=== PATIENT | male | born 1960 | race Caucasian/White ===

== ENCOUNTER 2016-04-07 | Emergency (ER) | payer BC ==
[2016-04-07] MEDS ORDERED: Clindamycin Cap(NF) 300 MG CAP PO ONE ×2 (00:14→00:15)
[2016-04-07] MEDS ORDERED: diPHENhydraMINE PO* 25 MG PO ONE (00:16)
[2016-04-07] MEDS ORDERED: Clindamycin CAP* 150 MG ONE (00:46)
[2016-04-07] MEDS ORDERED: Clindamycin CAP* 150 MG PO ONE (01:00)
[2016-04-07 01:22] VITALS: BP 132/80
--- NOTE | 2016-04-18 22:15 | ED ---
Tammi Padilla SooYoung, scribed for Raul Alford MD on 04/07/16 at 0019 . Throat Pain/Nasal Congestion - HPI Summary HPI Summary: A 55 y/o M presents to ED with swelling to R-side of tongue and neck. Pt states onset was approx 1-2 days ago, when he first noticed lower R tooth pain. Gradually, he noticed his tongue "felt weird" and became swollen. Associated sx : mild R ear pressure. Denies dyspnea. Aggravating factors: swallowing. Pt took his Lisinopril this AM. Pt has NKA. - History of Current Complaint Time Seen by Provider: 04/07/16 00:02 Hx Obtained From: Patient Onset/Duration: Lasting Days, Still Present Severity: Moderate - Allergies/Home Medications Allergies/Adverse Reactions: Allergies Allergy/AdvReac Type Severity Reaction Status Date / Time No Known Allergies Allergy Verified 12/21/15 17:43 PMH/Surg Hx/FS Hx/Imm Hx Previously Healthy: Yes Cardiovascular History: Reports: Hx Hypertension Infectious Disease History: No Infectious Disease History: Denies: Traveled Outside the [place] in Last 30 Days - Family History Known Family History: Positive: Hypertension - Social History Occupation: Employed Full-time - SELF-EMPLOYED Lives: With Family Alcohol Use: Rare Substance Use Type: Reports: None Smoking Status (MU): Never Smoked Tobacco Review of Systems Negative: Fever Positive: Dental Pain, Ear Ache - mild R ear, Other - swelling of tongue and neck, R-side Cardiovascular: Negative Respiratory: Negative All Other Systems Reviewed And Are Negative: Yes Physical Exam Triage Information Reviewed: Yes Vital Signs On Initial Exam: Initial Vitals Temp Pulse Resp BP Pulse Ox 98.3 F 89 10 175/83 94 04/07/16 00:07 04/07/16 00:07 04/07/16 00:07 04/07/16 00:07 04/07/16 00:07 Vital Signs Reviewed: Yes Appearance: Positive: Well-Appearing, No Pain Distress Skin: Positive: Warm, Skin Color Reflects Adequate Perfusion, Dry Head/Face: Positive: Normal Head/Face Inspection Eyes: Positive: EOMI, LIDYA ENT: Positive: Other - R EYE-TOOTH WITH FILLING IS TENDER TO PALPATION. GINGIVAL SWELLING AT SITE. UNDERNEATH TONGUE HAS SWELLING. R SUBMANDIBULAR IS TENDER BUT NOT SWOLLEN. POSTERIOR PHARYNX IS OPEN, NOT SWOLLEN. TONGUE IS NOT SWOLLEN. NO RESP DISTRESS. Neck: Positive: Supple, Nontender Respiratory/Lung Sounds: Positive: Clear to Auscultation, Breath Sounds Present Cardiovascular: Positive: RRR Abdomen Description: Positive: Nontender, Soft Bowel Sounds: Positive: Present Musculoskeletal: Positive: Normal, Strength/ROM Intact Neurological: Positive: Normal, Sensory/Motor Intact, Alert, Oriented to Person Place, Time Psychiatric: Positive: Affect/Mood Appropriate Diagnostics - Vital Signs Vital Signs Temp Pulse Resp BP Pulse Ox 04/07/16 00:07 98.3 F 89 10 175/83 94 - Laboratory Lab Statement: Any lab studies that have been ordered have been reviewed, and results considered in the medical decision making process. EENT Course/Dx - Course Course Of Treatment: MDM: A 55 y/o M presents with a c/o of swollen tongue and neck on R side. Associated sx include R lower tooth pain, R ear pressure. PE showed tenderness of R eye-tooth and gingival swelling at site; underneath tongue is swollen. R submandibular is tender but not swollen. Posterior pharynx is open and not swollen. Tongue is not swollen. Pt is not in any respiratory distress. Pt was given Clindamycin and Benedryl in ED. Patient will be d/c with Clindamycin, and instructed to follow up with dentist. Pt is agreeable with this plan. Assessment/Plan: DISCHARGE HOME STABLE. - Diagnoses Provider Diagnoses: Mouth swelling Discharge - Discharge Plan Condition: Stable Disposition: HOME Prescriptions: Clindamycin Cap(NF) [Cleocin 300 mg Cap(NF)] 300 mg PO QID #37 cap Patient Education Materials: Toothache (ED) Referrals: Sha Waldrop MD [Primary Care Provider] - Additional Instructions: YOU HAVE SWELLING IN YOUR MOUTH THAT APPEARS TO BE A DENTAL INFECTION. TREAT THE DENTAL INFECTION WITH THE ANTIBIOTIC CLINDAMYCIN AND FOLLOW UP WITH YOUR DENTIST. THERE IS AN ALLERGIC REACTION CALLED ANGIOEDEMA THAT CAN OCCUR WITH LISINOPRIL. TAKE BENADRYL 25MG EVERY 4 HOURS NEEDED TO DECREASE THE SWELLING. DO NOT TAKE YOUR LISINOPRIL UNTIL YOU FOLLOW UP WITH YOUR DOCTOR AND DISCUSS IF YOU SHOULD CONTINUE YOUR LISINOPRIL OR NOT. RETURN TO THE EMERGENCY DEPARTMENT FOR ANY WORSENING OF YOUR CONDITION; CONTINUED OR WORSE SWELLING, DIFFICULTY SWALLOWING OR BREATHING, YOU FEEL ILL OR QUESTIONS OR CONCERNS. The documentation as recorded by the Tammi vázquez,Jessica accurately reflects the service I personally performed and the decisions made by me, Raul Alford MD.
== END 2016-04-07 01:21 | disposition home or self-care (01) ==
LOC: ED
DX: R22.0 Localized swelling, mass and lump, head (principal)
CPT/HCPCS: 99282; A9270-GY